=== PATIENT | female | born 1945 | race Two or more races ===

== ENCOUNTER 2024-11-06 10:55 | Emergency (ER) | payer OTHER, BC ==
[~2024-11-06] VITALS: Ht 165.1 cm; Wt 67.1 kg
[2024-11-06 10:59] VITALS: BP 156/77; O2SAT 99
[2024-11-06] MEDS ORDERED: CRESTOR40 MG PO (11:01)
[2024-11-06] MEDS ORDERED: AMLODIPINE-OLM1 EAC3 (11:01)
[2024-11-06] MEDS ORDERED: KETOROLAC TROMETHAMINE 60 MG VIAL IM STA (11:35)
[2024-11-06] MEDS ORDERED: KETOROLAC TROMETHAMINE 60 MG VIAL IM ONE (12:09)
== END 2024-11-06 13:49 | disposition home or self-care (01) ==
LOC: ER 10:57
DX: S49.82XA Other specified injuries of left shoulder and upper arm, initial encounter (principal); W19.XXXA Unspecified fall, initial encounter; Y93.89 Activity, other specified; Y92.89 Other specified places as the place of occurrence of the external cause; Y99.8 Other external cause status; I10 Essential (primary) hypertension; E11.9 Type 2 diabetes mellitus without complications
CPT/HCPCS: 29105; 73030; 73070; 73100; 96372; 99283; J1885